=== PATIENT | male | born 1955 | race Two or more races ===

== ENCOUNTER 2017-04-30 11:08 | Emergency (ER) | payer OTHER ==
[2017-04-30 11:15] VITALS: BP 154/91; PULSE 65; RESP 18; TEMP 98.1; O2SAT 98
--- NOTE | 2017-04-30 12:09 | C.PDOC ---
History Of Present Illness 61 year old male presents to ER complains of trigger finger to left middle hand for 2 months. Patient states he has been to [facility] [place] [facility] [place] and is having trouble finding an orthopedic that takes his insurance. He states some individual told him to come to [facility]. Denies any new injury. Time Seen by Provider: 04/30/17 11:42 Chief Complaint (Nursing): Upper Extremity Problem/Injury History Per: Patient History/Exam Limitations: no limitations Onset/Duration Of Symptoms: Days (2 months ) Past Medical History Reviewed: Historical Data, Nursing Documentation, Vital Signs Vital Signs: Last Vital Signs Temp 98.1 F 04/30/17 11:13 Pulse 65 04/30/17 11:13 Resp 18 04/30/17 11:13 BP 154/91 H 04/30/17 11:13 Pulse Ox 98 04/30/17 12:24 - Medical History PMH: No Chronic Diseases Surgical History: No Surg Hx Family History: States: No Known Family Hx - Social History Hx Alcohol Use: Yes Hx Substance Use: No - Immunization History Hx Tetanus Toxoid Vaccination: Yes Hx Influenza Vaccination: Yes Review Of Systems Except As Marked, All Systems Reviewed And Found Negative. Musculoskeletal: Positive for: Other ((+) Trigger finger to the middle finegr, left hand.). Negative for: Shoulder Pain, Arm Pain Physical Exam - Physical Exam Appears: Well, Non-toxic, No Acute Distress Skin: Warm, Dry, No Diaphoretic, No Rash, No Ecchymosis Head: Atraumatic, Normacephalic Eye(s): bilateral: Normal Inspection Neck: Normal ROM Chest: Symmetrical Extremity: Capillary Refill (<2), Other ((+) Left hand 3rd digit contracture.) Neurological/Psych: Oriented x3, Normal Speech Gait: Steady ED Course And Treatment O2 Sat by Pulse Oximetry: 98 Medical Decision Making Medical Decision Making: Patient with Dupuytren contracture of left hand 3rd digit. Patient needs to be seen by orthopedic. Advise patient to contact [facility] service to assist in finding an orthopedic who accepts his insurance. Additionally advise to follow up with primary physician Dr Hughes for the referral. Patient verbalized understanding. Disposition Counseled Patient/Family Regarding: Diagnosis, Need For Followup - Disposition Disposition: HOME/ ROUTINE Disposition Time: 11:45 Condition: STABLE - POA Present On Arrival: None - Clinical Impression Clinical Impression: Dupuytrens contracture - PA / [employer] / Resident Statement MD/DO has reviewed & agrees with the documentation as recorded. - Scribe Statement The provider has reviewed the documentation as recorded by the Scribe Luly Pillai All medical record entries made by the Judiibthomas were at my direction and personally dictated by me. I have reviewed the chart and agree that the record accurately reflects my personal performance of the history, physical exam, medical decision making, and the department course for this patient. I have also personally directed, reviewed, and agree with the discharge instructions and disposition.
== END 2017-04-30 12:01 | disposition home or self-care (01) ==
LOC: C.ER 11:08
DX: M72.0 Palmar fascial fibromatosis [Dupuytren] (principal)